=== PATIENT | male | born 1995 | race Caucasian/White ===

== ENCOUNTER 2020-07-29 22:40 | Emergency (ER) | payer MEDICAID, SELFPAY ==
[2020-07-29 22:55] VITALS: BP 143/98; PULSE 86; RESP 20; TEMP 37.1; O2SAT 96
--- NOTE | 2020-07-29 23:05 | ED.SKABFB ---
HPI - Skin/Abscess/Foreign Bdy General Chief complaint: Skin/Abscess/Foreign Body Stated complaint: swelling in face Source: patient Mode of arrival: ambulatory Limitations: no limitations History of Present Illness HPI narrative: this is a 24-year-old male who presents with some lesion to his right lower jaw area that is nonfluctuant tender red warm and painful recently got out of senior care and has had that abscess that was been persistent was given medication while in senior care. Currently has a tender submandibular gland on the right with no fever chills no shortness of breath. MD complaint: abscess/boil Onset (ago): day(s) Tetanus up to date: unsure Location: face Severity: moderate Severity scale (1-10): 8 Quality: aching Pain Consistency: constant Relieving factors: none Exacerbating factors: none Related Data Home Medications Medication Instructions Recorded Confirmed citalopram [Celexa] 10 mg PO DAILY 07/29/20 07/29/20 mirtazapine [Remeron] 15 mg PO DAILY 07/29/20 07/29/20 Allergies Allergy/AdvReac Type Severity Reaction Status Date / Time No Known Allergies Allergy Verified 07/29/20 22:55 Review of Systems Review of Systems: All systems reviewed & are unremarkable except as noted in HPI and below PMFSH Past Medical History Medical History No significant past medical history Exam Const: General: no acute distress Orientation/consciousness: patient oriented x3 HENMT: Head: normal to inspection Eyes: Conjunctivae: conjunctivae normal Pupils: Equal, round and reactive pupils present EOM: EOMs intact bilaterally Neck: Neck: normal visual inspection Chest: Chest palpation & inspection: normal inspection of the chest Resp: Effort & Inspection: normal respiratory effort Cardio: Rate: regular rate Rhythm: regular rhythm GI: GI Palp: Yes Soft to palpation Skin: General skin exam: normal color Rashes: no rashes Other: firm nonfluctuant area right jaw area approximately 3cm in diameter nondraining red and tender to ava Neuro: General: patient oriented x3 Extrem: General: normal to inspection Course Course Emergency Course: patient given dose of ceftriaxone and Toradol and advised patient to take medicine that we sent to his pharmacy. Also to follow with primary care physician. Critical Care Time Critical Care Time Critical Care Time: No Discharge Plan Discharge Clinical Impression: Abscess of skin or subcutaneous tissue Cellulitis Qualifiers: Site of cellulitis: face Qualified Code(s): L03.211 - Cellulitis of face Patient Disposition: Home, Self-Care Condition: Stable Instructions: Antibiotic Form, Cellulitis (ED), Abscess (ED) Additional Instructions: Follow-up with primary care physician within 1 to 2 weeks further evaluation and treatment. Prescriptions: New amoxicillin-pot clavulanate [Augmentin] 875-125 mg tablet 1 tablet PO Q12H Qty: 20 RF: 0 tramadol [Ultram] 50 mg tablet 50 mg PO Q6H PRN (Reason: pain) Qty: 20 RF: 0 No Action citalopram [Celexa] 10 mg Tablet 10 mg PO DAILY RF: 0 mirtazapine [Remeron] 15 mg Tablet 15 mg PO DAILY RF: 0 Follow-up/Referrals: UNKNOWN,DOCTOR [Primary Care Provider] - Time of Disposition: 23:10
[2020-07-29] MEDS: cefTRIAXone 1 GM VIAL IM (23:16)
[2020-07-29] MEDS: KETOROLAC (*BKC) 60 MG/2 ML VIAL IM (23:16)
[2020-07-29 23:17] VITALS: BP 140/88; PULSE 88; RESP 18; TEMP 36.6; O2SAT 98
== END 2020-07-29 23:19 | disposition home or self-care (01) ==
PROVIDERS: Emergency Provider Emergency Medicine
DX: L03.211 Cellulitis of face (principal)
CPT/HCPCS: 96372; 99283; 99284; J0696; J1885